=== PATIENT | female | born 1990 | race Caucasian/White ===

== ENCOUNTER → 2020-10-01 14:33 | Outpatient (BNVA) | payer SELFPAY | PROVIDERS: Visit Provider Nurse Practitioner Women's Health | DX: N92.6 Irregular menstruation, unspecified (principal) | CPT/HCPCS: 81025 ==

== ENCOUNTER → 2020-10-23 08:12 | Outpatient (BNVA) | payer SELFPAY | PROVIDERS: Visit Provider Nurse Practitioner Women's Health | DX: O09.30 Supervision of pregnancy with insufficient antenatal care, unspecified trimester (principal) | CPT/HCPCS: 81000 ==

== ENCOUNTER → 2020-11-22 10:07 | Outpatient (BNVA) | payer SELFPAY | PROVIDERS: Visit Provider Obstetrics & Gynecology | DX: Z34.80 Encounter for supervision of other normal pregnancy, unspecified trimester (principal) | CPT/HCPCS: 80307; 81000; 85025; 86592; 86762; 86803; 86850; 86900; 87086; 87340; 87491; 87591; 87661; 88175 ==

== ENCOUNTER → 2020-12-12 13:03 | Outpatient (BNVA) | payer SELFPAY | PROVIDERS: Visit Provider Obstetrics & Gynecology | DX: O09.30 Supervision of pregnancy with insufficient antenatal care, unspecified trimester (principal) | CPT/HCPCS: 81000 ==

== ENCOUNTER → 2021-01-09 08:36 | Outpatient (BNVA) | payer SELFPAY | PROVIDERS: Visit Provider Obstetrics & Gynecology | DX: Z34.80 Encounter for supervision of other normal pregnancy, unspecified trimester (principal) | CPT/HCPCS: 81000; 87086 ==

== ENCOUNTER → 2021-01-27 10:39 | Outpatient (BNVA) | payer SELFPAY | PROVIDERS: Visit Provider Obstetrics & Gynecology | DX: O09.30 Supervision of pregnancy with insufficient antenatal care, unspecified trimester (principal) | CPT/HCPCS: 81000; 82950; 85025; 87086; 87481; 87512; 87798; 87799 ==

== ENCOUNTER → 2021-02-10 13:58 | Outpatient (BNVA) | payer SELFPAY | PROVIDERS: Visit Provider Obstetrics & Gynecology | DX: Z34.80 Encounter for supervision of other normal pregnancy, unspecified trimester (principal) | CPT/HCPCS: 81000 ==

== ENCOUNTER → 2021-03-03 15:57 | Outpatient (BNVA) | payer SELFPAY | PROVIDERS: Visit Provider Obstetrics & Gynecology | DX: Z34.80 Encounter for supervision of other normal pregnancy, unspecified trimester (principal) | CPT/HCPCS: 81000 ==

== ENCOUNTER → 2021-03-28 13:51 | Outpatient (BNVA) | payer SELFPAY | PROVIDERS: Visit Provider Obstetrics & Gynecology | DX: Z34.80 Encounter for supervision of other normal pregnancy, unspecified trimester (principal) | CPT/HCPCS: 81000 ==

== ENCOUNTER 2021-04-02 05:59 | Inpatient (IN) | payer SELFPAY ==
[2021-04-02] VITALS (60 sets, daily range): BP systolic 100–156; BP diastolic 55–89; PULSE 75–123; RESP 16; TEMP 36.7
--- NOTE | 2021-04-02 07:25 | P.MISC_ITS ---
Miscellaneous Note Purpose of Documentation: Parental counseling of fetus with congenital heart abnormalities Note: I have personally reviewed maternal care documentations including her most recent [employer]LECT[employer]SEM[employer] visit with Dr. Rodriguez at [facility], her maternal- medicine consult in [place] at [facility], her echo at [facility], and the consultation note from the genetics team at [facility]. I personally patient's care with the palliative care team at [facility] on 04/01/2021. After reviewing all documentation and the discussion with the palliative care team, I counseled on and reviewed treatment options with mother (Nadia Harrison) and father. We reviewed the echo findings including hypoplastic left heart syndrome, severely hypoplastic aortic arch, and abnormal pulmonary veins. Mother expressed her understanding of the congenital heart defect and her discussion previously with the cardiac care team at [facility]. She understands that the infant would require significant care including multiple surgeries to correct the heart defect and potential need for cardiac transplant given the aortic and pulmonary vein abnormalities. Both mother and father have elected comfort care measures only for the , but understand that they can at any time elect for resuscitative interventions. Both mother and father have requested no CPR, no intubation, and no assisted respirations for the . Parents would be comfortable with supplemental oxygen as needed if it were not to cause further harm for the . Given the patient's congenital heart defect discussed that supplemental oxygen may increase pulmonary vasculature and lead to further pulmonary congestion. Mother has requested to make the infant as comfortable as possible so the does not suffer. Discussed medication options with mother and father including the use of Ativan and morphine. Plan to use morphine 0.1 mg/kg per dose every hour as needed for signs of pain or respiratory distress. Plan to use Ativan 0.05 mg/kg per dose every hour as needed for agitation and restlessness. Reviewed anticipated changes in the including but not limited to color change and respiratory changes during the dying process. Parents expressed understanding, and all questions were answered. A store operations associate will be at delivery in the event parents elect for resuscitative measures.
[2021-04-02 07:30] LABS: Basophils # 0.1 10^3/uL (0.0-0.1); Basophils % 0.7 %; Eosinophils # 0.1 10^3/uL (0.0-0.8); Hematocrit 33.6 % (37.0-47.0); Lymphocytes # 2.6 10^3/uL (0.8-4.8); Lymphocytes % 22.5 %; Mean Corpuscular HGB Conc 32.7 g/dL (30.0-36.0); Mean Corpuscular Hemoglobin 30.3 pg (28.0-34.0); Mean Corpuscular Volume 92.6 fl (81-99); Mean Platelet Volume 8.3 fL (7.4-10.4); Monocytes # 0.7 10^3/uL (0.2-0.9); Monocytes % 6.4 %; Neutrophils # 7.81 10^3/uL (1.8-7.7); Neutrophils % 68.3 %; Nucleated Red Blood Cells % 0 %; Platelet Count 372 10^3/cmm (130-400); Red Blood Count 3.63 10^6/uL (4.1-5.3); Red Cell Distribution Width 13.5 % (12.1-15.1); White Blood Count 11.4 10^3/uL (4.0-10.0)
[2021-04-02] MEDS: miSOPROStol 100 mcg tablet 25 MCG VAGINAL ×2 (09:05→13:10)
--- NOTE | 2021-04-02 09:18 | PM.OPHPUD ---
Labor & Delivery H&P Update Date of Procedure: April 02, 2021 Date H&P Performed: 03/28/21 H&P update information: I have reviewed H&P completed within last 30 days, I have examined patient prior to procedure and No changes to prior documentation Changes to previous documentation: The patient is here for induction at term with a fetus with a fatal cardiac anomaly. She has elected to do comfort care only with infant. Dr. Cobb has spoken with the patient and and everyone is in agreement with the plan. Admission Diagnosis: at 37 weejsm three days. Related Problem List Diagnoses (1) Hypoplastic left heart of fetus affecting management of mother in [place] , antepartum: (2) Late care:
[2021-04-02] MEDS: lactated ringers 1,000 ML 999 ML IV (14:22)
[2021-04-02] MEDS: dextrose 5%-lactated ringers 1,000 ML 125 ML IV (15:40)
--- NOTE | 2021-04-02 15:43 | ANES.PREANE2 ---
Pre-Anesthetic Assessment Pre-Anesthetic Assessment: Height/Weight: Height 1.55 m Weight 67.585 kg Temp Pulse Resp BP 98.1 F 85 16 132/65 04/02/21 12:35 04/02/21 15:41 04/02/21 06:28 04/02/21 15:41 Preop Diagnosis: Demise induction Proposed Procedure: Labor Epidural Familial anesthetic complications: none Was Beta Aminta taken within 24 hours: N/A Was Clonidine taken within 24 hours: N/A Last intake: 1200- lunch clears- current Social: Social History: No alcohol and No tobacco Exam: Pre-Anes Outpt Exam: alert, oriented x 3, clear to auscultation bilaterally and regular rate & rhythm Airway: Submandibular: WNL Cervical ROM: WNL MP: 2 Dentition: Full History/ROS: No significant history except as noted Pulmonary: Pulmonary: None reported CV/HEM: CV/HEM: None reported : : None reported Hepatic: Hepatic: None reported GI: GI: None reported Metabolic: Metabolic: None reported Musc/skel: Musc/skel: None reported Neuropsych: Neuropsych: None reported Anesthetic Plan: ASA status: 2 Anesthesia: Regional (specify below) Other: epidural Risk of > 500 ml blood loss (7ml/kg in children): No Medications/Allergies Current Medications: Current Medications Generic Name Dose Route Start Last Admin Trade Name Freq PRN Reason Stop Dose Admin Dextrose/Lactated Ringer's 1,000 mls @ 125 m ls/hr 04/02/21 06:30 04/02/21 15:40 Dextrose 5%-Lact ated Ringers IV 125 mls/hr .Q8H GUILLERMO Administration Ropivacaine 200 mg in 100 mls @ 13 mls/hr 04/02/21 06:30 04/02/21 15:39 Naropin Premix EPIDURAL 11 mls/hr .Q7H42M GUILLERMO Administration Lactated Ringer's 1,000 mls @ 999 m ls/hr 04/02/21 06:29 04/02/21 14:22 Lactated Ringers IV 999 mls/hr .Q1H1M PRN Administration See label comment s PFSH Anesthesia PFSH: Medical History No pertinent past medical history neghx: htn,dm,thyroid,dvt/pe PCP: None Surgical History Hx of appendectomy (~2013) Hx of cholecystectomy (~2019) Family History Mother Hypertension Father Hypertension Brother Hypertension Denies family history of Colon cancer Ovarian cancer Diabetes Heart disease Hypercholesteremia Breast cancer Uterine cancer Thyroid disease Stroke Female Reproductive History: : 4 Data Anesthesia CBC & Chem 7: 04/02/21 06:50 Other Labs: Laboratory Results - last 48 hr 04/02/21 06:50 WBC 11.4 H RBC 3.63 L Hgb 11.0 L Hct 33.6 L MCV 92.6 MCH 30.3 MCHC 32.7 RDW 13.5 Plt Count 372 MPV 8.3 Neut % (Auto) 68.3 Lymph % (Auto) 22.5 [place]ck[place] % (Auto) 6.4 Eos % (Auto) 1.0 Baso % (Auto) 0.7 Neut # (Auto) 7.81 H Lymph # (Auto) 2.6 [place] # (Auto) 0.7 Eos # (Auto) 0.1 Baso # (Auto) 0.1 Nucleated RBC % (auto) 0 Nucleated RBCs # 0.0 Cardiac Studies: No Data to Display
--- NOTE | 2021-04-02 15:48 | ANES.PROC ---
Anesthesia Procedures Procedure/Date: 04/02/21 Epidural: Time Out Performed: Yes Consents Signed: Procedure Consent Consent: requested by attending/covering physician, from patient, risks and benefits reviewed and patient agrees to proceed Lumbar Level: L3-L4 Epidural position: sitting Epidural procedure: sterile prep of area, 1% lidocaine to numb the area, negative for paresthesia passed, no systemic response, sterile dressing applied and 0.2% Ropiavacaine @ mls/hr (10)
[2021-04-02] MEDS: oxytocin 30 UNIT/500 ML BAG IV (18:37)
--- NOTE | 2021-04-02 19:52 | PM.DELIVERY ---
Delivery Note: Date of delivery: April 02, 2021 Pre-delivery diagnoses: iup at 37 weeks, 3 days. fetus with hypoplastic left heart and severe pulmonary hypertension. Post-delivery diagnoses: same, comfort care only for baby Procedure: Op report anesthesia: Epidural Delivering Physician: lashae Estimated blood loss (mL): 20 Findings: term female in the ANMOL presentation Pre-Delivery Course: The patient was admitted for induction at term. She had two doses of cytotec and received an epidural. A low dose of pitocin was started and she had complete cervical dilation. She began to push Delivery: The patient had complete cervical dilation and began to push. The head delivered in the ANMOL position over an intact perineum under epidural anesthesia. The nose and mouth were bulb suctioned. The shoulders and body delivered atraumatically. The baby was placed onto the mother's abdomen. The cord was clamped and cut. Cord blood was obtained. The placenta delivered spontaneously. It was inspected and found to be intact. Inspection of the perineum revealed no repair required. Estimated blood loss 20 mL. Apgars on baby were pending at 1 minute and pending at 5 minutes. Weight of baby is pending. Mother and baby were stable post delivery. The baby will receive comfort measures only. The nitric acid concentrator operator was in attendance of the delivery. History History History 4 Term 3 Miscarriages/Ectopic 0 0 Living Children 3 A&P Assessment and plan (1) Hypoplastic left heart of fetus affecting management of mother in [place] , antepartum: Status: Acute (2) Late care: Status: Acute Coding Level of Care Code Acute Cuffer for [facility] Fwd Diagnoses Hypoplastic left heart of fetus affecting management of mother in [place] , antepartum O35.8XX0 Late care O09.30
[2021-04-02] MEDS: ketorolac 30 mg/mL INJ IVP (20:28)
[2021-04-02] MEDS: acetaminophen 325 mg Tablet 650 MG PO (22:12)
[2021-04-03] MEDS: acetaminophen 325 mg Tablet 650 MG PO (04:15)
[2021-04-03 09:16] LABS: Hematocrit 33.5 % (37.0-47.0); Hemoglobin 11.2 g/dL (11.5-15.3); Mean Corpuscular HGB Conc 33.4 g/dL (30.0-36.0); Mean Corpuscular Hemoglobin 30.1 pg (28.0-34.0); Mean Corpuscular Volume 90.1 fl (81-99); Mean Platelet Volume 8.2 fL (7.4-10.4); Platelet Count 365 10^3/cmm (130-400); Red Blood Count 3.72 10^6/uL (4.1-5.3); Red Cell Distribution Width 13.3 % (12.1-15.1)
[2021-04-03] MEDS: ibuprofen 800 mg tablet PO (10:13)
[2021-04-03] MEDS: prenatal vitamin Capsule 1 CAP PO (10:13)
[2021-04-03] MEDS: docusate sodium 100 mg Capsule PO (10:36)
[2021-04-03 10:46] VITALS: BP 121/84; PULSE 71
--- NOTE | 2021-04-03 12:58 | PM.DCS ---
Discharge Providers Date of Admission: 04/02/21 05:59 Date of Discharge: April 03, 2021 Attending Provider at Admission: Lala Rodriguez MD Attending Provider at Discharge: Lala Rodriguez MD Diagnoses at Discharge Discharge Diagnosis (1) Hypoplastic left heart of fetus affecting management of mother in [place] , antepartum: Status: Acute Permanent problem details: baby also has severe pulmonary hypertension. Comfort care only at (2) Late care: Status: Acute Hospital Course Hospital Course The patient was admitted for induction at term. She had spontaneous delivery of a term female . She did well . The baby was given comfort care only and passed peacefully in the family's arms. The patient requested discharge to home. Physical Exam Narrative: EXAM NARRATIVE: She is feeling ok this morning. She declines any need for antidepressants. She is having normal lochia and pain is well controlled. Const: GENERAL APPEARANCE: well kempt Resp: COMMON NORMALS: normal respiratory effort EFFORT & INSPECTION: Yes able to speak in complete sentences GI: COMMON NORMALS: Soft to palpation and non-tender PALPATION: Yes Soft to palpation Extremity: COMMON NORMALS: no calf tenderness Psych: COMMON NORMALS: mental status grossly normal, Normal thought process present, cooperative and speech normal APPEARANCE: Yes grossly normal and Yes well kempt ATTITUDE: Yes calm and Yes engaged ACTIVITY/MOTOR BEHAVIOR: Yes appropriate eye contact SPEECH: Yes normal speech THOUGHT PROCESS: Normal thought process present Urinary Catheter Management^: [place] Latex: Cath Placed During This Visit: yes, but has since been removed by the nurse Reason for Continuing Indwelling Catheter: Decision to DC Catheter Urinary Catheter Date of Insertion: 04/02/21 Urinary Catheter Time of Insertion: 16:35 Date Urinary Catheter Removed: 04/02/21 Time Urinary Catheter Discontinued: 19:26 Discharge Data Data Completed and Pending: Labs from last 24 hours 04/03/21 08:55 WBC 14.0 H RBC 3.72 L Hgb 11.2 L Hct 33.5 L MCV 90.1 MCH 30.1 MCHC 33.4 RDW 13.3 Plt Count 365 MPV 8.2 Vitals: Last Vital Signs Temp 98.1 F 04/02/21 12:35 Pulse 71 04/03/21 10:46 Resp 16 04/02/21 19:51 BP 121/84 04/03/21 10:46 Discharge Plan Discharge Patient Disposition: Home Condition: Stable Prescriptions: Continued prenat.vits,chetan,[id number] Tablet 1 tab PO DAILY RF: 0 calcium carbonate [Antacid (calcium carbonate)] 200 mg calcium (500 mg) tablet,chewable 200 mg PO DAILY RF: 0 Discharge Orders: Discharge Order (Routine); Ordered 04/03/21 Ordered By: Lala Rodriguez Patient Instructions: Opioid Safety Discharge Attestations Time Spent in Discharge Care*: less than 30 min Quality Metrics Clinical Quality Measures During this hospital stay, did patient experience: None Coding Level of Care Code Acute g FW DC note Diagnoses Hypoplastic left heart of fetus affecting management of mother in [place] , antepartum O35.8XX0 Late care O09.30
--- NOTE | 2021-04-03 13:28 | ANE.PACU2 ---
Inpatient post-anesthesia follow up: Airway intact: Yes Vital signs: Temperature 98.1 F Pulse Rate 71 Respiratory Rate 16 Blood Pressure 121/84 Pulse Oximetry Oxygen Delivery Me thod Room Air Oxygen Flow Rate Fraction of Inspir ed Oxygen Hydration adequate: Yes Nausea and vomiting: No Pain level: 2 Mental status: Baseline
[2021-04-03 18:56] VITALS: BP 139/93; PULSE 67; TEMP 36.6
[2021-04-03 19:22] VITALS: BP 139/93; PULSE 67; TEMP 36.6
== END 2021-04-03 19:23 | disposition home or self-care (01) | DRG 807 ==
PROVIDERS: Admitting Provider Obstetrics & Gynecology; Visit Provider Obstetrics & Gynecology
DX: O36.8930 Maternal care for other specified fetal problems, third trimester, not applicable or unspecified (principal); Z37.0 Single live birth; O75.89 Other specified complications of labor and delivery; Z3A.37 37 weeks gestation of pregnancy
CPT/HCPCS: 36415; 51702; 59409; 85025; 85027; 96374; J1885; J2795

== ENCOUNTER 2021-04-02 06:04 | Inpatient (IN) | payer SELFPAY ==
[2021-04-01 16:59] VITALS: BMI 28.1
[2021-04-01 17:00] VITALS: RESP 16; TEMP 36.7
[2021-04-01 17:28] VITALS: BP 134/79; PULSE 79
[2021-04-01 18:41] VITALS: BP 139/86; PULSE 86
[2021-04-02 06:11] VITALS: BP 130/70; PULSE 88; TEMP 36
== END 2021-04-02 06:13 | disposition home or self-care (01) | DRG 833 ==
PROVIDERS: Admitting Provider Obstetrics & Gynecology; Visit Provider Obstetrics & Gynecology
DX: O26.899 Other specified pregnancy related conditions, unspecified trimester (principal)
CPT/HCPCS: J3010